=== PATIENT | female | born 1990 | race American Indian/Alaskan Native ===

== ENCOUNTER 2020-03-07 11:25 | Outpatient (CLI) | payer OTHER ==
[2020-03-07 12:23] VITALS: BP 110/70
[2020-03-07] MEDS ORDERED: ACETAMINOPHEN 500 MG TAB PO ONE (13:00)
[2020-03-07 13:22] LABS: Bacteria,Urine 1+ /HPF (Negative); Bilirubin,Urine NEG (Negative); Blood,Urine NEG (Negative); Color,Urine Yellow (Yellow); Protein,Urine <15 mg/dL mg/dL (Negative); Urobilinogen,Urine < 2.0 mg/dL (<2.0)
== END 2020-03-07 13:30 | disposition home or self-care (01) ==
LOC: APU 11:25 → TRG 11:25
PROVIDERS: ATTEND Obstetrics & Gynecology
DX: O26.893 Other specified pregnancy related conditions, third trimester (principal); R51.9 Headache, unspecified; Z3A.30 30 weeks gestation of pregnancy
CPT/HCPCS: 59025; 81001

== ENCOUNTER 2020-04-19 13:04 | Outpatient (CLI) | payer OTHER ==
[2020-04-19 13:35] VITALS: BP 132/85
== END 2020-04-19 16:28 | disposition home or self-care (01) ==
LOC: TRG 13:04 → APU 13:05 → TRG 16:28
PROVIDERS: ATTEND Obstetrics & Gynecology
DX: O36.8130 Decreased fetal movements, third trimester, not applicable or unspecified (principal); Z3A.36 36 weeks gestation of pregnancy
CPT/HCPCS: 59025

== ENCOUNTER 2020-04-28 16:07 | Inpatient (IN) | payer OTHER ==
[2020-04-28] MEDS ORDERED: LACTATED RINGERS 1,000 ML ONE (17:34)
[2020-04-28] MEDS ORDERED: FAMOTIDINE 20 MG/2 ML INJ IV SCH (17:51)
[2020-04-28] MEDS ORDERED: METOCLOPRAMIDE 10 MG/2 ML INJ IV SCH (17:51)
[2020-04-28] MEDS ORDERED: ceFAZolin/STERILE WATER 2 GM/20 ML SYRINGE IV NR (18:00)
[2020-04-28] MEDS ORDERED: OXYTOCIN DRIP 30 UNITS/500 ML BAG IV SCH ×2 (18:00→21:00)
[2020-04-28] MEDS ORDERED: LACTATED RINGERS 1,000 ML IV SCH (18:00)
[2020-04-28 18:06] LABS: Basophils % (Auto) 0.5 % (0.0-1.8); Eosinophils % (Auto) 0.5 % (0.0-4.3); Hematocrit 39.1 % (30.3-42.9); Hemoglobin 12.9 gm/dl (10.1-14.3); Lymphocytes # (Auto) 1.3 K/mm3 (1.2-5.4); Lymphocytes % (Auto) 16.8 % (13.4-35.0); Mean Corpuscular HGB Conc 33 % (30-34); Mean Corpuscular Volume 89 fl (79-97); Monocytes # (Auto) 1.2 K/mm3 (0.0-0.8); Monocytes % (Auto) 15.3 % (0.0-7.3); Platelet Count 221 K/mm3 (140-440); Red Blood Count 4.39 M/mm3 (3.65-5.03)
--- NOTE | 2020-04-28 18:11 | Ultrasound Report ---
ULTRASOUND OBSTETRIC LIMITED INDICATION / CLINICAL INFORMATION: decreased FM. TECHNIQUE: Transabdominal. COMPARISON: None available. FINDINGS: Single intrauterine . Clinical gestational age is 38 weeks 0 days. HEART RATE (beats per minute): Initially, heart rate measures 145 bpm. However, at the co nclusion of the biophysical profile examination, heart rate measured 58 bpm. AMNIOTIC FLUID INDEX (cm) = 1.7 cm (normal = 7-24 cm) PRESENTATION: Cephalic. ADDITIONAL FINDINGS: None. BREATHING MOVEMENT = 0 GROSS BODY MOVEMENT = 0 TONE = 0 QUALITATIVE AMNIOTIC FLUID VOLUME = 0 TOTAL BIOPHYSICAL SCORE = 0/8 IMPRESSION: 1. Biophysical profile of 0/8. 2. Additionally, heart rate measured 145 bpm, though at the conclusion of the examination the f etal heart rate measured 58 bpm. Nurse Esthetician reported findings to YOUNG Kumar immediately following image acquisition. Signer Name: Omar Tim MD Signed: 04/28/2020 6:06 PM Workstation Name: [id number]
--- NOTE | 2020-04-28 18:25 | Anesthesia Day of Surgery ---
Anesthesia Day of Surgery - Day of Surgery Patient Examined: Yes Patient H&P Reviewed: Yes Patient is NPO: Yes Beta Blockers: No Cardiac Clearance: No Pulmonary Clearance: No Rocky's Test: N/A
--- NOTE | 2020-04-28 18:25 | Anesthesia Consultation ---
Anesthesia Consult and Med Hx Date of service: 04/28/20 - Airway Anesthetic Teeth Evaluation: Good ROM Head & Neck: Adequate Mental/Hyoid Distance: Adequate Mallampati Class: Class II Intubation Access Assessment: Probably Good - Pulmonary Exam CTA: Yes - Cardiac Exam Cardiac Exam: RRR - Pre-Operative Health Status ASA Pre-Surgery Classification: ASA2, Emergency Proposed Anesthetic Plan: General, Spinal Nerve Block: TAP - Pulmonary Hx Smoking: No Hx Asthma: No COPD: No Hx Pneumonia: No Hx Sleep Apnea: No - Cardiovascular System Hx Hypertension: No Hx Heart Attack/AMI: No Hx Angina: No - Central Nervous System Hx Seizures: No Hx Psychiatric Problems: No - Gastrointestinal Hx Gastroesophageal Reflux Disease: No - Endocrine Hx Renal Disease: No Hx End Stage Renal Disease: No Hx Insulin Dependent Diabetes: No Hx Non-Insulin Dependent Diabetes: No Hx Hypothyroidism: No Hx Hyperthyroidism: No - Hematic Hx Anemia: No Hx Sickle Cell Disease: No - Other Systems Hx Alcohol Use: No
[2020-04-28 18:29] LABS: Alanine Aminotransferase 11 units/L (7-56); Albumin 3.4 g/dL (3.9-5); BUN/Creatinine Ratio 11; Blood Urea Nitrogen 9 mg/dL (7-17); Calcium 8.6 mg/dL (8.4-10.2); Hemolysis Index 8
[2020-04-28 18:35] LABS: Bacteria,Urine 1+ /HPF (Negative); Bilirubin,Urine NEG (Negative); Blood,Urine NEG (Negative); Color,Urine Yellow (Yellow); Urobilinogen,Urine < 2.0 mg/dL (<2.0)
[2020-04-28 18:41] LABS: Protein,Urine >500 mg/dL (Negative)
--- NOTE | 2020-04-28 18:41 | History and Physical Report ---
History of Present Illness Date of examination: 04/28/20 Chief complaint: decreased movement, elevated BP at term History of present illness: 29yo at 38wks presents from clinic for evaluation of severe BP elevations at term. She denies VELASCO/RUQ pain/changes to vision/contractions/ vaginal bleeding or leakage of fluid, but she reports decreased movement. No additional complaints. 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 Family/Genetic History: hypertension Social history: no significant social history - Obstetrical History Expected Date of Delivery: 05/12/20 Actual Gestation: 38 Week(s) 0 Day(s) : 1 Para: 0 Spontaneous Abortions: 0 Number of Living Children: 0 Medications and Allergies Allergies Allergy/AdvReac Type Severity Reaction Status Date / Time No Known Allergies Allergy Verified 04/28/20 16:29 Home Medications Medication Instructions Recorded Confirmed Last Taken Type 21/Iron Fu/Folic Acid 1 each PO DAILY 03/07/20 04/19/20 04/18/20 Hi story [ Complete Caplet] Active Meds: Active Medications Cefazolin Sodium (Cefazolin/Sterile Water 2 Gm/20 Ml Syringe) 2 gm IV PREOP NR Stop: 04/29/20 17:59 Citric Acid/Sodium Citrate (Bicitra Oral Liqd 30ml) 30 ml PO ONCE GURPREET Stop: 04/29/20 18:50 Last Admin: 04/28/20 18:22 Dose: 30 ml Documented by: Famotidine (Famotidine 20 Mg/2 Ml Inj) 20 mg IV ONCE GURPREET Stop: 04/29/20 17:50 Last Admin: 04/28/20 18:26 Dose: 20 mg Documented by: Lactated Ringer's (Lactated Ringers) 1,000 mls @ 2,250 mls/hr IV PREOP GURPREET Stop: 04/29/20 18:27 Last Admin: 04/28/20 18:22 Dose: 2,250 mls/hr Documented by: Oxytocin/Sodium Chloride (Pitocin/Ns 30 Unit/500ml) 30 units in 500 mls @ 0 mls/hr IV TITR GURPREET; Protocol Metoclopramide HCl (Metoclopramide 10 Mg/2 Ml Inj) 10 mg IV ONCE GURPREET Last Admin: 04/28/20 18:36 Dose: 10 mg Documented by: - Vital Signs Vital signs: Vital Signs Pulse BP 100 H 137/88 04/28/20 16:50 04/28/20 16:50 Temp Pulse Resp BP Pulse Ox 98.6 F 124 H 20 137/88 100 04/28/20 17:45 04/28/20 17:47 04/28/20 17:45 04/28/20 17:45 04/28/20 17:47 - Physical Exam Breasts: Positive: deferred Cardiovascular: Regular rate Lungs: Positive: Clear to auscultation Abdomen: Positive: normal appearance Genitourinary (Female): Positive: normal external genitalia Cervix: Positive: other (0/0/-3) Uterus: Positive: other (gravid) Extremities: Positive: normal - Obstetrical FHR: category 2 FHR comments: spontaneous deceleration noted, minimal variability Cervical Dilatation: 0 station: -3 Uterine Contraction Pattern: Absent Results Result Diagrams: 04/28/20 16:35 04/28/20 16:35 Abnormal lab results 04/28/20 04/28/20 04/28/20 Range/Units 16:35 16:35 Unknown [place] % (Auto) 15.3 H (0.0-7.3) % [place] # (Auto) 1.2 H (0.0-0.8) K/mm3 Sodium 134 L (137-145) mmol/L Alkaline Phosphatase 160 H (35-129) units/L Albumin 3.4 L (3.9-5) g/dL U Epithel Cells (Auto) 19.0 H (0-13.0) /HPF All other labs normal. Assessment and Plan - Patient Problems (1) Non-reassuring electronic monitoring tracing Current Visit: Yes Status: Acute Plan to address problem: -BPP 0/8 -NST Cat II remote from delivery R/B/A/I for induction of labor vs primary delivery reviewed, with the recommendation to proceed with delivery. 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
[2020-04-28] MEDS ORDERED: BICITRA ORAL LIQD 30ML PO SCH (18:51)
[2020-04-28] MEDS ORDERED: ONDANSETRON 4 MG/2 ML INJ ONE (19:14)
[2020-04-28] MEDS ORDERED: BUPIVACAINE/PF (0.5%) 5 MG/1 ML 30 ML VIAL INFILTRATI ONE (19:14)
[2020-04-28] MEDS ORDERED: KETOROLAC 30 MG/1 ML INJ ONE (19:14)
[2020-04-28] MEDS ORDERED: PHENYLEPHRINE/NS 1,000 MCG/10 ML SYRINGE (OR USE) IV ONE (19:18)
[2020-04-28] MEDS ORDERED: diphenhydrAMINE 50 MG/ML VIAL IV PRN (19:29)
[2020-04-28] MEDS ORDERED: PROMETHAZINE 25 MG RECT SUPP PR PRN (19:29)
[2020-04-28] MEDS ORDERED: ONDANSETRON 4 MG/2 ML INJ IV PRN ×2 (19:29→20:24)
[2020-04-28] MEDS ORDERED: PROMETHAZINE 25 MG TAB PO PRN (19:29)
[2020-04-28] MEDS ORDERED: NalbUPHINE 10 MG/1 ML INJ IV PRN (19:29)
[2020-04-28] MEDS ORDERED: HYDROmorphone 1 MG/1 ML INJ IV PRN (19:29)
[2020-04-28] MEDS ORDERED: NALOXONE 0.4 MG/1 ML INJ IV PRN ×2 (19:29→20:24)
--- NOTE | 2020-04-28 19:31 | Progress Note ---
Spinal Anesthesia Block - Spinal Anesthesia Block Start Time: 18:57 Stop Time: 19:05 Performed by:: GALINA GALARZA Procedure: Spinal anesthesia block is being performed for [C/S]. H&P, labs have been reviewed. Patient's questions and concerns have been answered. Informed consent has been performed. Timeout has was performed. Patient in sitting position on side of bed. Sterile prep and drape was performed. 3 mL 1% lidocaine skin wheal at L [3]-L [4]. Needle introducer advanced. 25-gauge spinal needle advanced, [+] CSF [-] blood. [Marcaine 9.75mg and Precedex 5mcg] Spinal dose was given. All needles removed. Patient tolerated procedure well.
[2020-04-28] MEDS ORDERED: dexAMETHasone 20 MG/5 ML VIAL ONE (20:20)
[2020-04-28] MEDS ORDERED: IBUPROFEN 600 MG TAB PO PRN (20:24)
[2020-04-28] MEDS ORDERED: WITCH HAZEL/ GLYCERIN PAD TP PRN (20:24)
[2020-04-28] MEDS ORDERED: LANOLIN/ZINC/DIMETHICONE (LANSINOH) 7 GM TP PRN (20:24)
[2020-04-28] MEDS ORDERED: ACETAMINOPHEN 325 MG TAB PO PRN (20:24)
--- NOTE | 2020-04-28 20:37 | Progress Note ---
Regional Anesthesia Block - Regional Anesthesia Block Start Time: 20:32 Stop Time: 20:37 Performed By:: GALINA GALARZA Procedure: Patient consented for TAP block for post surgical pain management. Patient identified, monitors placed, and time out performed. Mid axillary TAP identified bilaterally via ultrasound. Skin prepped bilaterally with [chlorhexidine] and [20g stimuplex] needle advanced to the TAP. 30ml [Marcaine 0.25% with 25mcg Pre cedex and Decadron 4mg] injected under ultrasound guidance on the [left] side. 30ml [Marcaine 0.25% with 25mcg Precedex and Decadron 4mg] injected under ultrasound guidance on the [right] side.
--- NOTE | 2020-04-28 21:42 | Operative Report ---
Operative Report Operative Report: Preoperative diagnosis: 1. Intrauterine at 38 weeks 2. PreEclampsia 3. IUGR 4. NRFHT remote from delivery 5. BPP 0/8 Postoperative diagnosis: Same Procedure: Primary low transverse section Surgeon: Dr. Ana Daugherty EBL: 500 cc Urine: 200 mL IV fluids: 1000 mL Findings: Viable male in the vertex presentation weight 4 lbs. 2 oz. 1885 g Apgars 8 and 9. Otherwise normal pelvic anatomy Specimens: Placenta to pathology Complications: None Procedure: The patient was admitted to the OR with IV running and in place. She was properly identified as herself. She was given spinal anesthesia in the OR without difficulty. She was placed in the dorsal supine position with a leftward tilt. A Guaman catheter was inserted. She was then prepped and draped in the normal sterile fashion. An Allis test was used to confirm adequate anesthesia. Once confirmed, the Pfannensteil skin incision was made with the scalpel and carried to the underlying fascia using the scalpel and the Bovie. The fascia was incised in the midline and incision was extended bilaterally using the curved Denise scissors. The fascia was then dissected from the underlying rectus muscles in a series of sharp and blunt dissection using the Denise scissors. Muscles were in the in the midline sharply using Metzenbaum scissors and the peritoneum was entered into bluntly using the surgeon's fingers. An abraham retractor was inserted. Following this the bladder flap was created. The bladder blade was inserted. Hysterotomy incision was then made using the scalpel. Upon uterine entry, the amniotic sac was ruptured, meconium stained fluid noted. The infant was then delivered without difficulty. His mouth and nose were suctioned on the field. The cord was clamped and cut and he was handed to the waiting NICU personnel. The uterus was cleared of all clots and debris. The hysterotomy incision was then closed in a running locked fashion using 0 Vicryl. A second layer was reapproximated using the same suture in an imbricating fashion. The bladder flap was repaired in a running fashion using 4-0 Monocryl. Inspection of the incision was significant for bleeding at the left lateral margin. A figure of eight stitch was placed. Reinspection was significant for adequate hemostasis. At this point the peirtoneum and muscles were reapproximated in the midline using individual sutures of 2-0 Vicryl. Following this the fascia was closed in a running fashion using 0 Vicryl. Skin was closed in a running fashion using 3-0 Monocryl. The sponge lap needle and instrument counts were correct 2. The patient tolerated the procedure well. She was taken to recovery in stable condition.
[2020-04-28] MEDS ORDERED: MAGNESIUM SULFATE 4 GM/100 ML BAG IV ONE (22:01)
[2020-04-28] MEDS: MAGNESIUM SULFATE 40GM/1000ML 40 GM/1,000 ML BAG IV SCH (22:05)
[2020-04-29] MEDS: IBUPROFEN 800 MG TAB PO PRN ×3 (01:48→21:39)
--- NOTE | 2020-04-29 08:02 | Progress Note ---
Assessment and Plan A: POD1 s/p ltcs for nonreassuring FHT complicated by IUGR and preeclampsia VSS On magnesium, denies VELASCO, blurred vision, swelling, RUQ pain Baby in NICU P: Transition to mother baby after 24hr mag Monitor condition closely Subjective - Subjective Date of service: 04/29/20 Principal diagnosis: POD1 s/p ltcs Interval history: POD1 s/p LTCS for nonreassuring FHT complicated by IUGR and preeclampsia Patient reports: appetite normal, pain well controlled, flatus, no voiding normally (hawthorne catheter) : in NICU Objective - Vital Signs Latest vital signs: Vital Signs Temp Pulse Resp BP BP Pulse Ox 04/29/20 07:41 74 128/77 04/29/20 06:41 77 115/65 04/29/20 05:41 73 139/87 04/29/20 04:42 82 151/67 04/29/20 04:00 98 F 16 04/29/20 03:41 69 127/65 04/29/20 02:41 74 124/71 04/29/20 01:48 16 04/29/20 01:25 75 119/78 04/29/20 00:55 86 155/73 04/29/20 00:25 94 H 119/80 04/29/20 00:00 97.9 F 16 04/28/20 21:40 80 26 H 156/90 100 04/28/20 21:25 93 H 17 136/71 100 04/28/20 21:10 89 17 143/74 100 04/28/20 20:55 75 16 173/112 96 04/28/20 20:40 70 23 162/85 100 04/28/20 20:35 70 19 152/96 100 04/28/20 20:30 65 19 134/74 100 04/28/20 20:26 97.9 F 04/28/20 18:50 90 100 04/28/20 18:49 95 H 90 04/28/20 18:45 81 98 04/28/20 18:40 88 100 04/28/20 18:35 102 H 100 04/28/20 17:47 124 H 100 04/28/20 17:45 98.6 F 20 137/88 100 04/28/20 17:39 43 L 94 04/28/20 17:38 88 100 04/28/20 17:33 91 H 99 01/20/21 17:28 87 99 04/28/20 17:23 88 98 04/28/20 17:18 87 99 04/28/20 17:13 85 99 04/28/20 17:08 85 99 04/28/20 17:03 94 H 99 04/28/20 16:58 91 H 99 04/28/20 16:53 94 H 99 04/28/20 16:52 97 H 84 04/28/20 16:50 100 H 137/88 Intake and Output 04/28/20 04/28/20 04/29/20 15:59 23:59 07:59 Intake Total 1000 Output Total 400 1900 Balance 600 -1900 Intake: IV 1000 Output: Urine 400 1900 Indwelling Catheter 1900 Uretheral (Hawthorne) 200 Other: Total, Output Amount 700 Voiding Method Indwelling Catheter Weight 149 lb - Exam Breasts: Present: normal Abdomen: Present: normal appearance, soft. Absent: distention, tenderness, guarding Uterus: Present: normal, firm, fundal height below umbilicus. Absent: bogginess, tenderness Extremities: Present: normal Incision: Present: dressed - Labs Labs: Abnormal lab results 04/28/20 04/28/20 04/28/20 Range/Units 16:35 16:35 19:49 [place] % (Auto) 15.3 H (0.0-7.3) % [place] # (Auto) 1.2 H (0.0-0.8) K/mm3 ABG pH 7.194 L (7.320-7.450) POC ABG pCO2 48.7 H (32.0-48.0) mmHg POC ABG pO2 18.3 L (83-108) mmHg ABG Hemoglobin 18.2 H (12.0-17.5) ABG Oxyhemoglobin 37.0 L (94-98) ABG Potassium 5.2 H (3.40-4.50) mmol/L ABG Glucose 59 L (65-95) mg/dL Sodium 134 L (137-145) mmol/L Magnesium (1.7-2.3) mg/dL Alkaline Phosphatase 160 H (35-129) units/L Albumin 3.4 L (3.9-5) g/dL Arterial Blood Glucose 59 L (65-95) mg/dL Arterial Blood Ionized Calcium 5.5 H (4.6-5.3) mg/dL U Epithel Cells (Auto) (0-13.0) /HPF 04/28/20 04/29/20 Range/Units Unknown 06:12 Riley % (Auto) (0.0-7.3) % [place] # (Auto) (0.0-0.8) K/mm3 ABG pH (7.320-7.450) POC ABG pCO2 (32.0-48.0) mmHg POC ABG pO2 (83-108) mmHg ABG Hemoglobin (12.0-17.5) ABG Oxyhemoglobin (94-98) ABG Potassium (3.40-4.50) mmol/L ABG Glucose (65-95) mg/dL Sodium (137-145) mmol/L Magnesium 6.10 H (1.7-2.3) mg/dL Alkaline Phosphatase (35-129) units/L Albumin (3.9-5) g/dL Arterial Blood Glucose (65-95) mg/dL Arterial Blood Ionized Calcium (4.6-5.3) mg/dL U Epithel Cells (Auto) 19.0 H (0-13.0) /HPF
[2020-04-29 08:52] LABS: Hematocrit 38.3 % (30.3-42.9); Hemoglobin 12.6 gm/dl (10.1-14.3)
--- NOTE | 2020-04-29 09:41 | Post Anesthesia Evaluation ---
- Post Anesthesia Evaluation Patient Participated: Yes Airway Patent: Yes Stable Respiratory Function: Yes Nausea/Vomiting: No Temp > 96.8F: Yes Pain Manageable: Yes Adequeate Hydration: Yes Anesthesia Complications: No Block Receding Appropriately: Yes Patient on Ventilator: No
[2020-04-29] MEDS: PRENATAL VIT27-FE FUMARATE-FOLIC ACID VIT TAB PO SCH (10:19)
[2020-04-29] MEDS: oxyCODONE /ACETAMINOPHEN 5-325MG TAB PO PRN ×2 (11:48→23:21)
[2020-04-29] MEDS ORDERED: FLU VACC QUAD 2020-2021 (6 months +)/PF 60 0.5 ML SYRINGE IM ONE (12:00)
[2020-04-29] MEDS: MAGNESIUM SULFATE 40GM/1000ML 40 GM/1,000 ML BAG IV SCH (19:19)
[2020-04-30] MEDS: oxyCODONE /ACETAMINOPHEN 5-325MG TAB PO PRN ×2 (09:00→18:44)
[2020-04-30] MEDS: PRENATAL VIT27-FE FUMARATE-FOLIC ACID VIT TAB PO SCH (09:31)
[2020-04-30] MEDS ORDERED: FLU VACC QUAD 2020-2021 (6 months +)/PF 60 0.5 ML SYRINGE IM ONE (12:00)
[2020-04-30] MEDS: IBUPROFEN 800 MG TAB PO PRN (12:23)
--- NOTE | 2020-04-30 15:45 | Progress Note ---
Assessment and Plan A: POD#2 s/p primary section Preeclamspia with severe features s/p magnesium sulfate for seizure prophylaxis P: Routine postop care Monitor BP curve Subjective - Subjective Date of service: 04/30/20 Principal diagnosis: POD#2 s/p primary section Interval history: No overnight events. Patient reports: appetite normal, voiding normally, pain well controlled, f latus, ambulating normally, no bowel movement : in NICU Objective - Vital Signs Latest vital signs: Vital Signs Temp Pulse Resp BP BP Pulse Ox 04/30/20 08:32 98.0 F 65 18 144/94 85 04/30/20 04:05 98.7 F 75 20 154/86 99 04/30/20 03:34 80 197/90 04/30/20 03:18 67 126/73 04/30/20 03:03 66 128/74 04/30/20 02:48 71 142/77 04/30/20 02:33 76 143/82 04/30/20 02:19 71 142/79 04/30/20 02:18 77 147/86 04/30/20 02:15 98.1 F 16 04/30/20 02:03 75 146/82 04/30/20 01:48 81 137/81 04/30/20 01:33 77 134/80 04/30/20 01:18 73 131/72 04/30/20 01:03 94 H 151/85 04/30/20 00:48 71 133/80 04/30/20 00:33 75 132/78 04/30/20 00:18 71 129/77 04/30/20 00:03 80 130/75 04/29/20 23:48 80 135/69 04/29/20 23:33 96 H 139/83 04/29/20 23:18 86 133/79 04/29/20 23:03 88 142/81 04/29/20 22:48 76 136/82 04/29/20 22:33 74 136/79 04/29/20 22:18 82 131/80 04/29/20 22:03 80 136/83 04/29/20 21:48 80 132/85 04/29/20 21:33 90 140/81 04/29/20 21:18 88 138/79 04/29/20 21:03 79 131/78 04/29/20 20:48 80 130/76 04/29/20 20:32 86 151/86 04/29/20 19:41 86 142/77 04/29/20 19:36 86 147/81 04/29/20 19:35 86 16 147/81 04/29/20 18:41 83 140/75 04/29/20 17:42 83 135/87 04/29/20 16:00 97.3 F L 18 Intake and Output 04/30/20 04/30/20 04/30/20 06:59 14:59 22:59 Intake Total 240 Output Total 700 Balance -700 240 Intake: Oral 240 Output: Urine 700 Indwelling Catheter 700 Other: Total, Intake Amount 240 Total, Output Amount 150 - Exam Breasts: Present: deferred Abdomen: Present: soft Uterus: Present: normal Extremities: Present: normal - Labs Labs: Abnormal lab results 04/29/20 04/29/20 04/30/20 Range/Units 15:41 20:25 00:27 Magnesium 6.40 H 5.80 H 3.70 H (1.7-2.3) mg/dL
[2020-04-30] MEDS: MAGNESIUM HYDROXIDE (MOM) ORAL LIQD UDC PO SCH (15:59)
[2020-04-30] MEDS: SIMETHICONE 80 MG CHEW TAB PO PRN (15:59)
[2020-05-01] MEDS: oxyCODONE /ACETAMINOPHEN 5-325MG TAB PO PRN (06:30)
[2020-05-01] MEDS: MAGNESIUM HYDROXIDE (MOM) ORAL LIQD UDC PO SCH ×2 (06:32→18:39)
[2020-05-01] MEDS: PRENATAL VIT27-FE FUMARATE-FOLIC ACID VIT TAB PO SCH (12:06)
[2020-05-01] MEDS: IBUPROFEN 800 MG TAB PO PRN ×2 (12:06→18:39)
--- NOTE | 2020-05-01 14:55 | Progress Note ---
Assessment and Plan A: POD#3 s/p primary section Delayed return of bowel function Preeclamspia with severe features s/p magnesium sulfate for seizure prophylaxis P: Begin Labetalol 100 mg PO BID Continue bowel regimen Anticipate discharge tomorrow with follow up in 1 week for BP check Subjective - Subjective Date of service: 05/01/20 Principal diagnosis: POD#3 s/p primary section Interval history: Pt reports passing minimal flatus, no bowel movement. Blood pressures have been more elevated today. Patient reports: appetite normal, voiding normally, pain well controlled, flatus, ambulating normally, no bowel movement : in NICU Objective - Vital Signs Latest vital signs: Vital Signs Temp Pulse Resp BP BP Pulse Ox 05/01/20 13:40 140/90 05/01/20 12:14 140/90 05/01/20 08:31 78 150/85 97 05/01/20 08:30 98.4 F 18 05/01/20 06:30 16 05/01/20 05:45 77 135/80 97 05/01/20 00:45 98.0 F 76 20 121/70 98 04/30/20 21:54 105 H 130/87 97 Intake and Output 04/30/20 05/01/20 05/01/20 22:59 06:59 14:59 Intake Total 240 480 Balance 240 480 Intake: Oral 240 480 Other: Total, Intake Amount 240 240 # Voids Indwelling Catheter 1 1 - Exam Breasts: Present: deferred Abdomen: Present: soft, distention (moderate ) Uterus: Present: fundal height at umbilicus Extremities: Present: edema (1+) Incision: Present: intact (with steristrips)
--- NOTE | 2020-05-01 14:59 | Discharge Summary ---
Providers - Providers Date of Admission: 04/28/20 16:30 Date of discharge: 05/02/20 Attending physician: GARETH FRIAS MD 04/28/20 20:24 Consult to Leather Scraper [CONS] Routine Reason For Exam: Primary care physician: GARETH FRIAS MD Hospitalization Reason for admission: other (decreased movement, elevated blood pressure ) Delivery: Procedure: section, primary low transverse Procedure details: Please see operative report Incision: intact (with steri strips ) Other procedures: none complications: none Discharge diagnosis: IUP at term delivered baby: male Hospital course: Pt was admitted for elevated blood pressures and decreased movement. She had a biophysical profile that was 0/8 and underwent primary section which she tolerated well. She wad diagnosed with preeclampsia with severe features and received magnesium sulfate for 24 hours for seizure prophylaxis. During her postop course, she was started on labetalol 100 mg PO BID and she experienced delayed return of bowel function. She met discharge criteria on POD#4. She will follow up in 1 wk for a BP check. Condition at discharge: Stable Disposition: DC-01 TO HOME OR SELFCARE - Discharge Diagnoses (1) S/P section Status: Acute (2) Term of male Status: Acute (3) IUGR (intrauterine growth restriction) Status: Acute (4) Non-reassuring electronic monitoring tracing Status: Acute (5) Preeclampsia Status: Acute Plan - Discharge Medications Prescriptions: labetaloL [Labetalol 100mg TAB] 100 mg PO BID #60 tablet Ibuprofen [Motrin] 800 mg PO Q8HR PRN #30 tablet PRN Reason: Pain, Moderate (4-6) oxyCODONE /ACETAMINOPHEN [Percocet 5/325] 1 tab PO Q6HR PRN #30 tablet PRN Reason: Pain - Provider Discharge Summary Activity: routine, no sex for 6 weeks, no heavy lifting 4 weeks, no strenuous exercise Diet: routine Instructions: routine Additional instructions: [] Smoking cessation referral if applicable(refer to patient education folder for contact #) [] Refer to [facility] Booklet Call your doctor immediately for: * Fever > 100.5 * Heavy vaginal bleeding ( >1 pad per hour) * Severe persistent headache * Shortness of breath * Reddened, hot, painful area to leg or breast * Drainage or odor from incision. * Keep incision clean and dry at all times and follow doctor's instructions regarding bathing/showering - Follow up plan Follow up: GARETH FRIAS MD [Primary Care Provider] - 7 Days
[2020-05-01] MEDS: SIMETHICONE 80 MG CHEW TAB PO PRN (18:45)
[2020-05-02] MEDS: IBUPROFEN 800 MG TAB PO PRN (00:21)
[2020-05-02] MEDS: MAGNESIUM HYDROXIDE (MOM) ORAL LIQD UDC PO SCH (04:12)
[2020-05-02] MEDS ORDERED: FLU VACC QUAD 2020-2021 (6 months +)/PF 60 0.5 ML SYRINGE IM ONE (10:00)
[2020-05-02] MEDS: PRENATAL VIT27-FE FUMARATE-FOLIC ACID VIT TAB PO SCH (10:33)
[2020-05-02] MEDS: oxyCODONE /ACETAMINOPHEN 5-325MG TAB PO PRN (10:35)
[2020-05-02 13:33] VITALS: BP 132/86
== END 2020-05-02 14:50 | disposition home or self-care (01) | DRG 765 ==
LOC: TRG 16:07 → APU 16:09 → TRG 16:30 → LD 04-29 00:10 → OB 04-30 03:59
PROVIDERS: ADMIT Obstetrics & Gynecology; ATTEND Obstetrics & Gynecology
PROC: 10D00Z1 Extraction of Products of Conception, Low, Open Approach (ICD-10-PCS; principal; 2020-04-28)
PROC: 4A033R1 Measurement of Arterial Saturation, Peripheral, Percutaneous Approach (ICD-10-PCS; 2020-04-28)
DX: O76 Abnormality in fetal heart rate and rhythm complicating labor and delivery (principal); O36.5930 Maternal care for other known or suspected poor fetal growth, third trimester, not applicable or unspecified; O14.14 Severe pre-eclampsia complicating childbirth; Z20.822 Contact with and (suspected) exposure to COVID-19; Z3A.38 38 weeks gestation of pregnancy; Z37.0 Single live birth; Z82.49 Family history of ischemic heart disease and other diseases of the circulatory system; O77.0 Labor and delivery complicated by meconium in amniotic fluid
CPT/HCPCS: 36415; 59025; 76815; 76819; 80053; 81001; 82805; 83735; 85014; 85018; 85025; 86592; 86850; 86900; 86901; 90471; 90686; 96360; 96361; 96365; 96366; G0378; G0008; J1100; J1885; J2370; J2405; J2765; J3475; J3490; J7120; U0003

== ENCOUNTER 2020-07-27 02:16 | Emergency (ER) | payer OTHER ==
[2020-07-27] MEDS ORDERED: ASPIRIN 325 MG TAB PO ONE (03:05)
[2020-07-27 03:20] LABS: Basophils # (Auto) 0.1 K/mm3 (0.0-0.1); Basophils % (Auto) 0.9 % (0.0-1.8); Eosinophils # (Auto) 0.2 K/mm3 (0.0-0.4); Eosinophils % (Auto) 2.5 % (0.0-4.3); Hematocrit 38.8 % (30.3-42.9); Lymphocytes # (Auto) 1.7 K/mm3 (1.2-5.4); Lymphocytes % (Auto) 18.9 % (13.4-35.0); Mean Corpuscular HGB Conc 33 % (30-34); Mean Corpuscular Volume 87 fl (79-97); Monocytes # (Auto) 0.5 K/mm3 (0.0-0.8); Monocytes % (Auto) 6.2 % (0.0-7.3); Platelet Count 336 K/mm3 (140-440); Red Blood Count 4.46 M/mm3 (3.65-5.03)
[2020-07-27 03:45] LABS: Alanine Aminotransferase 82 units/L (7-56); Albumin 4.5 g/dL (3.9-5); BUN/Creatinine Ratio 15; Blood Urea Nitrogen 12 mg/dL (7-17); Calcium 9.2 mg/dL (8.4-10.2); Hemolysis Index 7
--- NOTE | 2020-07-27 07:43 | Emergency Department Report ---
ED Chest Pain HPI - General Chief Complaint: Chest Pain Stated Complaint: CHEST PAIN, LEFT ARM NUMB Time Seen by Provider: 07/27/20 07:39 Source: patient Mode of arrival: Ambulatory Limitations: No Limitations - History of Present Illness Initial Comments: Patient presents for evaluation of moderate intermittent pressure-like epigastric pain x2 days without nausea vomiting or diarrhea. Patient denies fever, denies shortness of breath, denies exertional or pleuritic symptoms. Patient denies calf pain or swelling. - Related Data Home Medications Medication Instructions Recorded Confirmed Last Taken 21/Iron Fu/Folic Acid 1 each PO DAILY 03/07/20 04/28/20 04/28/20 [ Complete Caplet] Valacyclovir HCl [Valtrex] 1,000 mg PO DAILY 04/28/20 04/28/20 04/27/20 Previous Rx's Medication Instructions Recorded Last Taken Type Ibuprofen [Motrin] 800 mg PO Q8HR PRN #30 tablet 05/01/20 Unknown Rx labetaloL [Labetalol 100mg TAB] 100 mg PO BID #60 tablet 05/01/20 Unknown Rx oxyCODONE /ACETAMINOPHEN [Percocet 1 tab PO Q6HR PRN #30 tablet 05/01/20 Unknown Rx 5/325] Allergies Allergy/AdvReac Type Severity Reaction Status Date / Time No Known Allergies Allergy Verified 04/28/20 16:29 Heart Score - EKG Read Time Time EKG Completed: 09:00 EKG Read Time: 09:00 ED Review of Systems ROS: Stated complaint: CHEST PAIN, LEFT ARM NUMB Other details as noted in HPI Comment: All other systems reviewed and negative ED Past Medical Hx - Past Medical History Hx Hypertension: No Hx Heart Attack/AMI: No Hx Congestive Heart Failure: No Hx Diabetes: No Hx Deep Vein Thrombosis: No Hx Renal Disease: No Hx Sickle Cell Disease: No Hx Seizures: No Hx Asthma: No Hx COPD: No Hx HIV: No - Social History Smoking Status: Never Smoker - Medications Home Medications: Home Medications Medication Instructions Recorded Confirmed Last Taken Type 21/Iron Fu/Folic Acid 1 each PO DAILY 03/07/20 04/28/20 04/28/20 History [ Complete Caplet] Valacyclovir HCl [Valtrex] 1,000 mg PO DAILY 04/28/20 04/28/20 04/27/20 History Ibuprofen [Motrin] 800 mg PO Q8HR PRN #30 tablet 05/01/20 Unknown Rx labetaloL [Labetalol 100mg TAB] 100 mg PO BID #60 tablet 05/01/20 Unknown Rx oxyCODONE /ACETAMINOPHEN [Percocet 1 tab PO Q6HR PRN #30 tablet 05/01/20 Unknown Rx 5/325] ED Physical Exam - General Limitations: No Limitations General appearance: alert, in no apparent distress - Head Head exam: Present: atraumatic, normocephalic - Eye Eye exam: Present: normal appearance - ENT ENT exam: Present: mucous membranes moist - Neck Neck exam: Present: normal inspection - Respiratory Respiratory exam: Present: normal lung sounds bilaterally. Absent: respiratory distress - Cardiovascular Cardiovascular Exam: Present: regular rate, normal rhythm. Absent: systolic murmur, diastolic murmur, rubs, gallop - GI/Abdominal GI/Abdominal exam: Present: soft, tenderness (Mild right upper quadrant tenderness), normal bowel sounds - Extremities Exam Extremities exam: Present: normal inspection - Back Exam Back exam: Present: normal inspection - Neurological Exam Neurological exam: Present: alert, oriented X3 - Psychiatric Psychiatric exam: Present: normal affect, normal mood - Skin Skin exam: Present: warm, dry, intact, normal color. Absent: rash ED Course Vital Signs 07/27/20 07/27/20 07/27/20 03:02 08:22 08:45 Temperature 98.2 F Pulse Rate 71 62 69 Respiratory 18 16 21 Rate Blood Pressure 133/84 143/65 Blood Pressure 132/70 [Left] O2 Sat by Pulse 100 100 100 Oximetry 07/27/20 07/27/20 07/27/20 09:01 09:15 09:31 Temperature Pulse Rate 62 64 77 Respiratory 19 17 18 Rate Blood Pressure 122/72 122/72 122/72 Blood Pressure [Left] O2 Sat by Pulse 100 100 97 Oximetry 07/27/20 07/27/20 09:45 10:00 Temperature Pulse Rate 72 68 Respiratory 19 19 Rate Blood Pressure 143/65 112/76 Blood Pressure [Left] O2 Sat by Pulse 100 100 Oximetry - Reevaluation(s) Reevaluation #1: 07/27/20 11:20 Patient reevaluated following work-up, results of ultrasound discussed at length. Patient advised to follow-up with surgery or PMD in 1 to 2 days for surgery referral and reevaluation. Patient notified she may develop cholecystitis requiring emergent gallbladder removal at any time, consequently follow-up is necessary. On discharge, abdomen is soft nontender, patient states she feels better. ED Medical Decision Making - Lab Data Result diagrams: 07/27/20 03:07 07/27/20 03:07 Labs 07/27/20 07/27/20 07/27/20 03:07 03:07 06:55 WBC 8.8 RBC 4.46 Hgb 13.0 Hct 38.8 MCV 87 MCH 29 MCHC 33 RDW 13.0 L Plt Count 336 Lymph % (Auto) 18.9 [place] % (Auto) 6.2 Eos % (Auto) 2.5 Baso % (Auto) 0.9 Lymph # (Auto) 1.7 [place] # (Auto) 0.5 Eos # (Auto) 0.2 Baso # (Auto) 0.1 Seg Neutrophils % 71.5 H Seg Neutrophils # 6.3 Sodium 138 Potassium 3.9 Chloride 100.6 Carbon Dioxide 27 Anion Gap 14 BUN 12 Creatinine 0.8 Estimated GFR > 60 BUN/Creatinine Ratio 15 Glucose 100 Calcium 9.2 Total Bilirubin 0.20 AST 41 H ALT 82 H Alkaline Phosphatase 89 Troponin T < 0.010 < 0.010 Total Protein 7.1 Albumin 4.5 Albumin/Globulin Ratio 1.7 Vital Signs 07/27/20 07/27/20 07/27/20 03:02 08:22 08:45 Temperature 98.2 F Pulse Rate 71 62 69 Respiratory 18 16 21 Rate Blood Pressure 133/84 143/65 Blood Pressure 132/70 [Left] O2 Sat by Pulse 100 100 100 Oximetry 07/27/20 07/27/20 07/27/20 09:01 09:15 09:31 Temperature Pulse Rate 62 64 77 Respiratory 19 17 18 Rate Blood Pressure 122/72 122/72 122/72 Blood Pressure [Left] O2 Sat by Pulse 100 100 97 Oximetry 07/27/20 07/27/20 09:45 10:00 Temperature Pulse Rate 72 68 Respiratory 19 19 Rate Blood Pressure 143/65 112/76 Blood Pressure [Left] O2 Sat by Pulse 100 100 Oximetry Critical care attestation.: If time is entered above; I have spent that time in minutes in the direct care of this critically ill patient, excluding procedure time. ED Disposition Clinical Impression: Biliary colic Disposition: DC-01 TO HOME OR SELFCARE Is pt being admited?: No Condition: Stable Instructions: Cholelithiasis, Biliary Colic, Adult Additional Instructions: Follow-up with surgery or primary care doctor for referral to surgery in 1 to 2 days for reevaluation and consultation for elective cholecystectomy. Please note your condition may worsen at any time necessitating emergent surgical removal of your gallbladder. Return to the emergency department for any return of or worsening abdominal pain, or any worsening symptoms. Referrals: SHILPA PULIDO DO [Staff Physician] - 3-5 Days
--- NOTE | 2020-07-27 08:47 | Ultrasound Report ---
ULTRASOUND ABDOMEN, COMPLETE INDICATION / CLINICAL INFORMATION: RUQ pain. COMPARISON: None available. FINDINGS: PANCREAS: No significant abnormality. ABDOMINAL AORTA: No significant abnormality. IVC: No significant abnormality. LIVER: No significant abnormality. GALLBLADDER: Multiple echogenic stones and biliary sludge is noted throughout the gallbladder. No sig nificant gallbladder wall thickening or reported positive sonographic Craver sign. No significant per icholecystic fluid. BILE DUCTS: No significant abnormality. Common bile duct measures 3 mm. KIDNEYS: Right: No significant abnormality. Left: No significant abnormality. SPLEEN: No significant abnormality. FREE FLUID: None. ADDITIONAL FINDINGS: None. IMPRESSION: 1. Cholelithiasis and biliary sludge without evidence of acute cholecystitis. Signer Name: Rodger Fried MD Signed: 07/27/2020 8:43 AM Workstation Name: [id number]
[2020-07-27 10:08] VITALS: BP 112/76
--- NOTE | 2020-07-27 11:26 | Emergency Department Report ---
ED General Adult HPI - General Chief complaint: Chest Pain Stated complaint: CHEST PAIN, LEFT ARM NUMB Time Seen by Provider: 07/27/20 07:39 Source: patient Mode of arrival: Ambulatory Limitations: No Limitations - History of Present Illness Initial comments: Patient presents for evaluation of moderate intermittent pressure-like epigastric pain x2 days without nausea vomiting or diarrhea. Patient denies fever, denies shortness of breath, denies exertional or pleuritic symptoms. Patient denies calf pain or swelling. Severity scale (0 -10): 6 - Related Data Home Medications Medication Instructions Recorded Confirmed Last Taken 21/Iron Fu/Folic Acid 1 each PO DAILY 03/07/20 04/28/20 04/28/20 [ Complete Caplet] Valacyclovir HCl [Valtrex] 1,000 mg PO DAILY 04/28/20 04/28/20 04/27/20 Previous Rx's Medication Instructions Recorded Last Taken Type Ibuprofen [Motrin] 800 mg PO Q8HR PRN #30 tablet 05/01/20 Unknown Rx labetaloL [Labetalol 100mg TAB] 100 mg PO BID #60 tablet 05/01/20 Unknown Rx oxyCODONE /ACETAMINOPHEN [Percocet 1 tab PO Q6HR PRN #30 tablet 05/01/20 Unknown Rx 5/325] Allergies Allergy/AdvReac Type Severity Reaction Status Date / Time No Known Allergies Allergy Verified 04/28/20 16:29 ED Review of Systems ROS: Stated complaint: CHEST PAIN, LEFT ARM NUMB Other details as noted in HPI Comment: All other systems reviewed and negative ED Past Medical Hx - Past Medical History Hx Hypertension: No Hx Heart Attack/AMI: No Hx Congestive Heart Failure: No Hx Diabetes: No Hx Deep Vein Thrombosis: No Hx Renal Disease: No Hx Sickle Cell Disease: No Hx Seizures: No Hx Asthma: No Hx COPD: No Hx HIV: No Additional medical history: in April - Social History Smoking Status: Unknown if ever smoked - Medications Home Medications: Home Medications Medication Instructions Recorded Confirmed Last Taken Type 21/Iron Fu/Folic Acid 1 each PO DAILY 03/07/20 04/28/20 04/28/20 History [ Complete Caplet] Valacyclovir HCl [Valtrex] 1,000 mg PO DAILY 04/28/20 04/28/20 04/27/20 History Ibuprofen [Motrin] 800 mg PO Q8HR PRN #30 tablet 05/01/20 Unknown Rx labetaloL [Labetalol 100mg TAB] 100 mg PO BID #60 tablet 05/01/20 Unknown Rx oxyCODONE /ACETAMINOPHEN [Percocet 1 tab PO Q6HR PRN #30 tablet 05/01/20 Unknown Rx 5/325] ED Physical Exam - General Limitations: No Limitations General appearance: alert, in no apparent distress - Head Head exam: Present: atraumatic, normocephalic - Eye Eye exam: Present: normal appearance - ENT ENT exam: Present: mucous membranes moist - Neck Neck exam: Present: normal inspection - Respiratory Respiratory exam: Present: normal lung sounds bilaterally. Absent: respiratory distress - Cardiovascular Cardiovascular Exam: Present: regular rate, normal rhythm. Absent: systolic murmur, diastolic murmur, rubs, gallop - GI/Abdominal GI/Abdominal exam: Present: soft, tenderness (Mild right upper quadrant tenderness), normal bowel sounds - Extremities Exam Extremities exam: Present: normal inspection - Back Exam Back exam: Present: normal inspection - Neurological Exam Neurological exam: Present: alert, oriented X3 - Psychiatric Psychiatric exam: Present: normal affect, normal mood - Skin Skin exam: Present: warm, dry, intact, normal color. Absent: rash ED Course Vital Signs 07/27/20 07/27/20 07/27/20 03:02 08:22 08:45 Temperature 98.2 F Pulse Rate 71 62 69 Respiratory 18 16 21 Rate Blood Pressure 133/84 143/65 Blood Pressure 132/70 [Left] O2 Sat by Pulse 100 100 100 Oximetry 07/27/20 07/27/20 07/27/20 09:01 09:15 09:31 Temperature Pulse Rate 62 64 77 Respiratory 19 17 18 Rate Blood Pressure 122/72 122/72 122/72 Blood Pressure [Left] O2 Sat by Pulse 100 100 97 Oximetry 07/27/20 07/27/20 09:45 10:00 Temperature Pulse Rate 72 68 Respiratory 19 19 Rate Blood Pressure 143/65 112/76 Blood Pressure [Left] O2 Sat by Pulse 100 100 Oximetry - Reevaluation(s) Reevaluation #1: 07/27/20 11:25 Patient reevaluated and in no acute distress, now denies pain, abdomen is soft and nontender. Discussed results of diagnostics at length including abnormal ultrasound requiring follow-up for possible elective cholecystectomy. Patient advised emergent cholecystectomy may be necessary at any time with development of cholecystitis, for which at present time there is no evidence. ED Medical Decision Making - Lab Data Result diagrams: 07/27/20 03:07 07/27/20 03:07 Labs 07/27/20 07/27/20 07/27/20 03:07 03:07 06:55 WBC 8.8 RBC 4.46 Hgb 13.0 Hct 38.8 MCV 87 MCH 29 MCHC 33 RDW 13.0 L Plt Count 336 Lymph % (Auto) 18.9 [place] % (Auto) 6.2 Eos % (Auto) 2.5 Baso % (Auto) 0.9 Lymph # (Auto) 1.7 [place] # (Auto) 0.5 Eos # (Auto) 0.2 Baso # (Auto) 0.1 Seg Neutrophils % 71.5 H Seg Neutrophils # 6.3 Sodium 138 Potassium 3.9 Chloride 100.6 Carbon Dioxide 27 Anion Gap 14 BUN 12 Creatinine 0.8 Estimated GFR > 60 BUN/Creatinine Ratio 15 Glucose 100 Calcium 9.2 Total Bilirubin 0.20 AST 41 H ALT 82 H Alkaline Phosphatase 89 Troponin T < 0.010 < 0.010 Total Protein 7.1 Albumin 4.5 Albumin/Globulin Ratio 1.7 Vital Signs 07/27/20 07/27/20 07/27/20 03:02 08:22 08:45 Temperature 98.2 F Pulse Rate 71 62 69 Respiratory 18 16 21 Rate Blood Pressure 133/84 143/65 Blood Pressure 132/70 [Left] O2 Sat by Pulse 100 100 100 Oximetry 07/27/20 07/27/20 07/27/20 09:01 09:15 09:31 Temperature Pulse Rate 62 64 77 Respiratory 19 17 18 Rate Blood Pressure 122/72 122/72 122/72 Blood Pressure [Left] O2 Sat by Pulse 100 100 97 Oximetry 07/27/20 07/27/20 09:45 10:00 Temperature Pulse Rate 72 68 Respiratory 19 19 Rate Blood Pressure 143/65 112/76 Blood Pressure [Left] O2 Sat by Pulse 100 100 Oximetry - Radiology Data Radiology results: report reviewed Cholelithiasis and biliary sludge without evidence of cholecystitis per radiology Critical care attestation.: If time is entered above; I have spent that time in minutes in the direct care of this critically ill patient, excluding procedure time. ED Disposition Clinical Impression: Cholelithiasis Disposition: DC-01 TO HOME OR SELFCARE Is pt being admited?: No Condition: Stable Instructions: Cholelithiasis, Biliary Colic, Adult Additional Instructions: Follow-up with surgery or primary care doctor for referral to surgery in 1 to 2 days for reevaluation and consultation for elective cholecystectomy. Please note your condition may worsen at any time necessitating emergent surgical removal of your gallbladder. Return to the emergency department for any return of or worsening abdominal pain, or any worsening symptoms. Referrals: SHILPA PULIDO DO [Staff Physician] - 3-5 Days
--- NOTE | 2020-07-29 09:30 | Electrocardiograph Report ---
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
== END 2020-07-27 10:30 | disposition home or self-care (01) ==
LOC: ED 02:16
DX: K80.20 Calculus of gallbladder without cholecystitis without obstruction (principal); Z79.899 Other long term (current) drug therapy
CPT/HCPCS: 36415; 76705; 80053; 84484; 85025; 93005

== ENCOUNTER 2020-08-24 06:06 | Day surgery (SDC) | payer OTHER ==
[2020-08-24] MEDS ORDERED: BACTERIOSTATIC SODIUM CHLORIDE 0.9% 30 ML VIAL INFILTRATI ONE (06:30)
[2020-08-24] MEDS ORDERED: LACTATED RINGERS 1,000 ML IV SCH (06:30)
[2020-08-24] MEDS ORDERED: ceFAZolin/STERILE WATER 2 GM/20 ML SYRINGE IV NR (07:00)
--- NOTE | 2020-08-24 07:09 | Anesthesia Consultation ---
Anesthesia Consult and Med Hx Date of service: 08/24/20 - Airway Anesthetic Teeth Evaluation: Good ROM Head & Neck: Adequate Mental/Hyoid Distance: Adequate Mallampati Class: Class II Intubation Access Assessment: Good - Pulmonary Exam CTA: Yes - Cardiac Exam Cardiac Exam: RRR - Pre-Operative Health Status ASA Pre-Surgery Classification: ASA1 Proposed Anesthetic Plan: General - Pulmonary Hx Smoking: No Hx Asthma: No COPD: No Hx Pneumonia: No Hx Sleep Apnea: No - Cardiovascular System Hx Hypertension: No Hx Heart Attack/AMI: No Hx Angina: No - Central Nervous System Hx Seizures: No Hx Psychiatric Problems: No - Gastrointestinal Hx Gastroesophageal Reflux Disease: No - Endocrine Hx Renal Disease: No Hx End Stage Renal Disease: No Hx Insulin Dependent Diabetes: No Hx Non-Insulin Dependent Diabetes: No Hx Hypothyroidism: No Hx Hyperthyroidism: No - Hematic Hx Anemia: No Hx Sickle Cell Disease: No - Other Systems Hx Alcohol Use: No Hx Substance Use: No Hx Cancer: No
[2020-08-24] MEDS ORDERED: LIDOCAINE MPF (2%) 20 MG/1 ML VIAL 5 ML ONE (07:10)
[2020-08-24] MEDS ORDERED: HYDROmorphone 1 MG/1 ML INJ ONE (07:10)
[2020-08-24] MEDS ORDERED: propofoL 200 MG/20 ML VIAL IV ONE (07:10)
[2020-08-24] MEDS: MIDAZOLAM 2 MG/2 ML INJ IV NR ×2 (07:10→07:25)
--- NOTE | 2020-08-24 07:10 | Anesthesia Day of Surgery ---
Anesthesia Day of Surgery - Day of Surgery Patient Examined: Yes Patient H&P Reviewed: Yes Patient is NPO: Yes
[2020-08-24] MEDS ORDERED: ROCURONIUM 50 MG/5 ML INJ IV ONE (07:11)
[2020-08-24] MEDS ORDERED: LIDOCAINE (1%) 10 MG/1 ML VIAL 20 ML MDV ONE (07:23)
[2020-08-24] MEDS ORDERED: BUPIVACAINE/PF (0.5%) 5 MG/1 ML 30 ML VIAL INFILTRATI ONE ×2 (07:23→08:01)
[2020-08-24] MEDS ORDERED: LIDOCAINE (1%) 10 MG/1 ML VIAL 20 ML MDV INFILTRATI ONE (08:04)
[2020-08-24] MEDS ORDERED: HYDROmorphone 1 MG/1 ML INJ IV PRN ×2 (08:08)
[2020-08-24] MEDS ORDERED: ONDANSETRON 4 MG/2 ML INJ IV PRN (08:08)
[2020-08-24] MEDS ORDERED: GLYCOPYRROLATE 0.4 MG/2 ML INJ ONE (08:16)
[2020-08-24] MEDS ORDERED: NEOSTIGMINE 10MG/10 ML INJ MDV ONE (08:16)
[2020-08-24] MEDS ORDERED: ONDANSETRON 4 MG/2 ML INJ ONE (08:17)
[2020-08-24] MEDS ORDERED: KETOROLAC 30 MG/1 ML INJ ONE (08:17)
--- NOTE | 2020-08-24 08:39 | Short Stay Summary ---
Short Stay Documentation Date of service: 08/24/20 - History Principal diagnosis: symptomatic cholelithiasis H&P: obtained from office - Allergies and Medications Current Medications: Allergies No Known Allergies Allergy (Verified 08/18/20 11:07) Home Medications Medication Instructions Recorded Confirmed Last Taken Type 21/Iron Fu/Folic Acid 1 each PO DAILY 03/07/20 08/18/20 08/23/20 Hist ory [ Complete Caplet] Fenugreek Seed/Bl.thistle/Anis 610 mg PO DAILY 08/18/20 08/18/20 08/23/20 History [Milkflow Packet] Lecithin 1,200 mg PO DAILY 08/18/20 08/18/20 08/23/20 History Active Medications Hydromorphone HCl (Hydromorphone 1 Mg/1 Ml Inj) 0.25 mg IV Q10MIN PRN PRN Reason: Pain, Moderate (4-6) Stop: 08/24/20 23:00 Hydromorphone HCl (Hydromorphone 1 Mg/1 Ml Inj) 0.5 mg IV Q10MIN PRN PRN Reason: Pain , Severe (7-10) Stop: 08/24/20 23:00 Lactated Ringer's (Lactated Ringers) 1,000 mls @ 100 mls/hr IV DIRECT GURPREET Last Admin: 08/24/20 06:45 Dose: 100 mls/hr Documented by: Midazolam HCl (Midazolam 2 Mg/2 Ml Inj) 2 mg IV ONCE NR Stop: 08/24/20 20:00 Last Admin: 08/24/20 07:25 Dose: 2 mg Documented by: Ondansetron HCl (Ondansetron 4 Mg/2 Ml Inj) 4 mg IV ONCE PRN PRN Reason: Nausea And Vomiting Stop: 08/24/20 20:00 - Brief post op/procedure progress note Date of procedure: 08/24/20 Pre-op diagnosis: symptomatic cholelithiasis Post-op diagnosis: same Procedure: laparoscopic cholecystectomy Anesthesia: GETA, local Findings: distended gallbladder Surgeon: SHILPA PULIDO Hat Lining Blocker: YIFAN HUDDLESTON Estimated blood loss: minimal Pathology: list (gallbladder) Specimen disposition: to lab Condition: stable - Hospital course Hospital course: Pt observed in PACU and discharged to home in stable condition when criteria met - Disposition Condition at discharge: Good Disposition: DC-01 TO HOME OR SELFCARE Short Stay Discharge Plan Activity: other Diet: regular Wound: open to air, per your surgeon's advice Additional Instructions: SEE PRINTED DISCHARGE INSTRUCTIONS Follow up with: PRIMARY CARE, [Primary Care Provider] - 7 Days SHILPA PULIDO DO [Staff Physician] - 14 Days Prescriptions: HYDROcodone/APAP 5-325 [[place] 5/325] 1 each PO Q6HR PRN #20 tablet PRN Reason: Pain , Severe (7-10) Ondansetron HCl [Zofran] 4 mg PO Q6H PRN #30 tablet PRN Reason: Nausea
[2020-08-24 09:45] VITALS: BP 118/72
--- NOTE | 2020-08-24 14:24 | Post Anesthesia Evaluation ---
- Post Anesthesia Evaluation Patient Participated: Yes Airway Patent: Yes Stable Respiratory Function: Yes Nausea/Vomiting: Yes Temp > 96.8F: Yes Pain Manageable: Yes Adequeate Hydration: Yes Anesthesia Complications: No Block Receding Appropriately: Not Applicable Patient on Ventilator: No
--- NOTE | 2020-08-24 15:16 | Operative Report ---
Operative Report Operative Report: Date of procedure: 08/24/20 Pre-op diagnosis: symptomatic cholelithiasis Post-op diagnosis: same Procedure: laparoscopic cholecystectomy Anesthesia: GETA, local Findings: distended gallbladder Surgeon: SHILPA PULIDO Hearing Stenographer: YIFAN HUDDLESTON Estimated blood loss: minimal Pathology: list (gallbladder) Specimen disposition: to lab Condition: stable Hospital course: Pt observed in PACU and discharged to home in stable condition when criteria met Date of operation: [04/16/2017] Preoperative diagnosis: Acute cholecystitis postOperative diagnoses: [Acute gangrenous cholecystitis] Procedure performed: Laparoscopic cholecystectomySurgeon: Holland Pulido DO Anesthesia: Gen. endotracheal anesthesia Findings: [Distended, gangrenous gallbladder with a thick wall, pericholecystic fluid, multiple stones] Specimen: Gallbladder Estimated blood loss: <10cc Complications: None Disposition: Stable to PACU HPI an indication: 29-year-old female who presented to the surgery clinic with complaints of intermittent right upper quadrant abdominal pain. The pain was associated with certain foods and often led to nausea and vomiting. An ultrasound was performed which showed gallstones without evidence of cholecystitis or bile duct dilatation. It was recommended that the patient undergo cholecystectomy. All risks, benefits, alternatives to surgery were discussed in detail and questions answered. Consent was obtained for laparoscopic, possible open cholecystectomy, possible cholangiogram. Procedure in detail: The patient was identified in the preoperative area and taken back to the operating room, placed on the operating room table in supine position. After anesthesia was induced, the abdomen was prepped and draped in usual sterile fashion and timeout was performed. Local anesthetic was infiltrated into all of the skin incision sites. Using an 11 blade, a supraumbilical incision was made through which a Veress needle was inserted. The position of the veress needle was confirmed with the saline drop test and the abdomen was then insufflated to 15 mmHg without incident. The veress needle was then removed and a 5 mm Optiview trocar placed through this incision. The abdomen was then inspected and there was no underlying injury to any of the abdominal contents. An additional 12 mm subxyphoid port, and 2, 5mm RUQ ports were then placed under direct visualization. The patient was then placed into reverse Trendelberg and tilted to the left. The gallbladder was visualized in the fundus was grasped and retracted cephalad. The gallbladder was mildly distended. The cystic duct and artery were then carefully dissected. Once the cystic duct and artery were skeletonized, these were the only 2 structures seen entering the gallbladder. The critical view was successfully obtained. Three clips were then placed on the proximal aspect of the cystic duct and one clip distally, and 2 clips on the cystic artery proximally and one distal. The cystic duct and cystic artery were then transected in between the clips using EndoShears. The gallbladder was placed into a Endo Catch bag and removed from the abdomen via the 12mm port. The gallbladder fossa was then inspected and there was no identifiable bleeding or bile leakage. Hemostasis was ensured. The clips on the cystic duct and artery were visualized and intact. The patient was then placed into neutral position. The 12 mm port fascia was closed with interrupted 0 Vicryl suture using the Crow Santana device. The remaining ports were removed under direct visualization. Skin incisions were closed with 4-0 Monocryl subcuticular stitches and skin glue. All skin incisions were once again infiltrated with local anesthetic. At the end case all sponge, instrument, sharp counts were correct 2. The patient was awoken from anesthesia, extubated, and taken to PACU in stable condition.
== END 2020-08-24 06:07 | disposition home or self-care (01) ==
LOC: OR 06:06
PROVIDERS: ATTEND Surgery
DX: K80.10 Calculus of gallbladder with chronic cholecystitis without obstruction (principal); Z20.822 Contact with and (suspected) exposure to COVID-19; Z79.899 Other long term (current) drug therapy; Z98.891 History of uterine scar from previous surgery; Z83.3 Family history of diabetes mellitus; Z80.8 Family history of malignant neoplasm of other organs or systems; Z82.49 Family history of ischemic heart disease and other diseases of the circulatory system
CPT/HCPCS: 47562; 81025; 88304; J0690; J1170; J1885; J2250; J2405; J2704; J2710; U0003